=== PATIENT | female | born 1940 | race Caucasian/White ===

== ENCOUNTER 2016-11-16 20:46 | Observation (INO) | payer BC ==
[2016-11-16] MEDS ORDERED: ceFOXitin 2 GM IVPREMIX* 2 GM/50 ML BAG ONE (20:55)
[2016-11-16] MEDS ORDERED: ceFOXitin 2 GM IVPREMIX* 2 GM/50 ML BAG IVPB ONE (20:56)
[2016-11-16] MEDS ORDERED: Bupivacaine 0.25% EPI 200,000* 30 ML SDV ONE (21:00)
[2016-11-16] MEDS ORDERED: Dexamethasone IV* 4 MG/ML 1 ML (4 MG) ONE (21:17)
[2016-11-16] MEDS ORDERED: Propofol* 10 MG/ML 20 ML BTL IV PUSH ONE (21:17)
[2016-11-16] MEDS ORDERED: Ondansetron INJ* 2 MG/ML VIAL ONE (21:17)
[2016-11-16] MEDS ORDERED: fentaNYL* 50 MCG/ML 2 ML VIAL (100 MCG VIAL) ONE (21:17)
[2016-11-16] MEDS ORDERED: Succinylcholine* 20 MG/ML 10 ML VIAL ONE (21:17)
[2016-11-16] MEDS ORDERED: Ketorolac INJ* 30 MG/ML 1 ML VIAL ONE (21:17)
[2016-11-16] MEDS ORDERED: Atracurium* 10 MG/ML 10 ML VIAL ONE (21:18)
[2016-11-16] MEDS ORDERED: Midazolam* 1 MG/ML 2 ML VIAL (2 MG) ONE (21:18)
[2016-11-16] MEDS ORDERED: Neostigmine Methylsulfate* 2 MG/2 ML SYRINGE ONE (21:49)
[2016-11-16] MEDS ORDERED: Glycopyrrolate IV* 0.2 MG/ML 1 ML VIAL ONE (21:49)
[2016-11-16] MEDS ORDERED: Acetaminophen TAB* 325 MG PO PRN (22:05)
[2016-11-16] MEDS ORDERED: HYDROmorphone INJ* 1 MG/ML CARPUJECT SYRINGE IV PRN ×2 (22:05→22:10)
[2016-11-16] MEDS ORDERED: Ondansetron INJ* 2 MG/ML VIAL IV PRN ×2 (22:05→22:10)
[2016-11-16] MEDS ORDERED: oxyCODONE/Acetamin 5/325 MG* TAB PO PRN ×2 (22:05→22:10)
[2016-11-16] MEDS ORDERED: fentaNYL* 50 MCG/ML 2 ML VIAL (100 MCG VIAL) IV PRN (22:10)
[2016-11-16] MEDS ORDERED: Scopolamine 1.5 mg* PATCH TRANSDERM PRN (22:10)
[2016-11-16] MEDS ORDERED: HYDROcodone/ACETAMIN 5-325 MG* 1 TAB PO PRN (22:10)
[2016-11-16] MEDS ORDERED: DiMENhydriNATE IV* 50 MG/ML VIAL IV PUSH PRN (22:10)
--- NOTE | 2016-11-17 00:13 | HP ---
HISTORY AND PHYSICAL: DATE OF ADMISSION: 11/16/16 CHIEF COMPLAINT: Abdominal pain. HISTORY OF PRESENT ILLNESS: The patient is a quite fit and active 75-year-old female who had some vague pains 2 days ago. Yesterday, she started to have more substantial pain, maybe something she had eaten, but then today it got substantially worse and was very sharp in the right lower quadrant and she presented to the [facility] and has subsequently been referred here. The pain is pretty intense in the right lower quadrant, hurts more with coughing or moving. There has been no nausea, vomiting, diarrhea, constipation. No change in bowel or bladder function. She has not been running a fever. She does not have any recent accident, injury, or trauma. She has not been exposed to anyone who is similarly ill. PAST MEDICAL HISTORY: Reveals laparoscopic cholecystectomy years ago. She had arthroscopy on the right knee. She has had 3 normal deliveries in the past without complication. MEDICATIONS: Include: 1. Lisinopril/hydrochlorothiazide 10/12.5 mg p.o. daily. 2. Bupropion 300 mg p.o. daily. 3. Baby aspirin one p.o. daily. 4. Vitamins. ALLERGIES: She denies medical allergies. FAMILY HISTORY: Reveals a stroke in her father. Her mother just at age 94. Her mother's sister is 104. There are no bleeding tendencies or anesthesia reactions in the family. SOCIAL HISTORY: She is a retired librarian assistant. Lives with her in [place]. Was down in the [place] area tending to her mother's estate, her mother just recently , when she felt ill and therefore reported to the emergency room. She has never been a smoker. She is fit and active. She swims 3 times a week. She does not use any drugs or illicit substances. REVIEW OF SYSTEMS: Negative for any chest pain, heart pain or any other cardiac disease. No emphysema, bronchitis or other chronic lung disease. She does have some chronic postnasal drip, but this has never really been a problem for her. No diabetes, thyroid or other endocrine. No hepatobiliary since her gallbladder surgery. No major GI or history. No major neuro problems. Orthopedically, she has had the right knee surgery. 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 She does have some mild depression, for which she is on the bupropion. PHYSICAL EXAMINATION GENERAL: She is a well-developed, well-nourished female, consistent with the stated age. VITAL SIGNS: She is afebrile. Pulse is 80, respirations 16 and unlabored, blood pressure is normal. LUNGS: Clear bilaterally with good aeration. BREAST: Exam was not repeated. HEART: Regular. No abnormal sounds. ABDOMEN: Slightly obese and soft. Quite tender in the right lower quadrant with focal rebound tenderness. No guarding. Mild Rovsing's sign. Mild cough and percussion tenderness. No palpable masses. She has a few small scars consistent with previous laparoscopic surgery. EXTREMITIES: Well perfused and without edema. 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 SKIN: Warm and well perfused. She is not diaphoretic. She is not jaundiced. LABORATORY DATA: Laboratory studies reveal white count elevated at 12,000. Hemoglobin is 11, platelet count is normal. Electrolytes are normal. Creatinine is 1.4. She has had a CT scan, which I personally reviewed, and it does look like evidence of acute appendicitis. There is no evidence of perforation or abscess. IMPRESSION: I discussed this with her and with her and I think she clearly has appendicitis and I think she merits laparoscopic appendectomy. They understand the vagaries of the diagnosis, the rationale for surgery, the risks and expected recovery. All their questions have been answered and they agree to proceed with laparoscopic appendectomy as soon as the operative schedule permits. [id number]/[facility] #: [id number] MTDD
[2016-11-17] MEDS ORDERED: ZOSYN 3.375 GM ONE TIME DOSE-OVER 30 MINUTES IVPB (01:00)
[2016-11-17] MEDS ORDERED: Piperac/Tazob 3.375 gm in NS* 3.375 GM/100 ML BAG IVPB SCH ×2 (01:00→08:00)
--- NOTE | 2016-11-17 01:29 | OP ---
DATE OF OPERATION: 11/16/16 - ROOM #335 DATE OF : 44 SURGEON: Fernando Orona MD [employer] MANUFACTURING TECHNICIAN: None. ANESTHESIOLOGIST: Dr. Burgos ANESTHESIA: General anesthetic, local infiltration. PRE-OP DIAGNOSIS: Appendicitis. POST-OP DIAGNOSIS: Appendicitis. OPERATIVE PROCEDURE: Laparoscopic appendectomy. DESCRIPTION OF PROCEDURE: The patient was supine on the operating table. After adequate general anesthetic, compression stockings, Nichelle Hugger warmer and intravenous antibiotics, the abdomen was prepped with antiseptic, and draped in a sterile fashion. A small umbilical incision was created. Blunt port cannula was placed and insufflation was carried out with carbon dioxide. Additional cannulae 5 mm left lower quadrant and left mid abdomen were placed through small stab wounds under direct vision. The appendix was acutely inflamed and suppurative and was stuck down over the wall of the cecum, it was easily peeled up. The base of the appendix was not particularly inflamed. It was readily divided with an EndoGIA stapler with a 60-mm whittaker cartridge. The appendix was placed in a retrieval bag, which was then brought out through the umbilical site. The operative site was examined. There was no un-drained collection. No bleeding and no residual fluid. The cannulae were removed. Pneumoperitoneum allowed to escape. Umbilical fascia was closed with 0 Polysorb and skin with 5-0 Polysorb followed by Steri-Strips in all cases. She tolerated the procedure well and was brought to Recovery in good condition. No complications. No drains. Pathologic specimen was appendix. Sponge and instrument counts were correct. Estimated blood loss was less than 20 mL. [id number]/[facility] #: [id number] [facility]
[2016-11-17] MEDS ORDERED: ceFOXitin 2 GM IVPREMIX* 2 GM/50 ML BAG IVPB SCH (05:30)
[2016-11-17 08:08] VITALS: BP 80/42
[2016-11-17] MEDS ORDERED: BuPROPion XL* 300 MG TAB.XL PO SCH (09:00)
[2016-11-17] MEDS ORDERED: Lisinopril TAB* 10 MG PO SCH (09:00)
[2016-11-17] MEDS ORDERED: Hydrochlorothiazide TAB* 25 MG PO SCH (09:00)
[2016-11-17] MEDS ORDERED: Pneumococcal *Vac Polyvalent 0.5 ML VIAL IM ONE (09:00)
--- NOTE | 2016-11-17 21:14 | DS ---
DISCHARGE SUMMARY: DATE OF ADMISSION: 11/16/16 DATE OF DISCHARGE: 11/17/16 PRINCIPAL ADMITTING DIAGNOSIS: Appendicitis. OPERATIVE PROCEDURE ON THIS ADMISSION: Laparoscopic appendectomy. HOSPITAL COURSE: The patient is a 75-year-old female, transferred from [facility], taken to the operating room late in the evening on 11/16/16 for a laparoscopic appendectomy, had an uncomplicated course, was ready to be discharged the following morning. [id number]/[facility] #: [id number] [facility]
== END 2016-11-17 11:10 | disposition home or self-care (01) ==
LOC: OR 20:46 → SSU 22:36
PROVIDERS: ADMIT Surgery; ATTEND Surgery
PROC: 0DTJ4ZZ Resection of Appendix, Percutaneous Endoscopic Approach (ICD-10-PCS; principal; 2016-11-16 21:00)
DX: K35.80 Unspecified acute appendicitis (principal); Z79.899 Other long term (current) drug therapy; Z79.82 Long term (current) use of aspirin; Z23 Encounter for immunization
CPT/HCPCS: 88304; 90471; 90732; 96365; 96375; G0009; G0378; J0330; J0694; J1100; J1885; J2250; J2405; J2543; J2704; J3010